=== PATIENT | male | born 1990 | race Caucasian/White ===

== ENCOUNTER 2018-05-19 11:11 | Emergency (ER) | payer BC ==
[2018-05-19 11:17] VITALS: BP 143/72
--- NOTE | 2018-05-19 11:38 | EDPHY ---
H & P Time Seen by Provider: 05/19/18 11:24 HPI/ROS: CHIEF COMPLAINT: Right ankle pain HISTORY OF PRESENT ILLNESS: 27-year-old male complaining of right ankle pain which occurred a few days ago he slipped on the ice. He is able to bear weight but notes continued pain to the right medial ankle. No paresthesia. No fall from height. No foot or calcaneus pain. No 5th metatarsal pain. PHYSICAL EXAM (Prior to examination, patient consented to physical exam, hands were washed and my usual and customary physical exam procedures followed) 1) GENERAL: Well-developed, well-nourished, alert and oriented. Appears to be in no acute distress. 2) HEAD: Normocephalic 3) HEENT: Pupils equal, round, reactive to light bilaterally. 4) LUNGS: Breathing comfortably. 5) MUSCULOSKELETAL: Soft tissue swelling to the medial malleolus with associated tenderness to the distal tibia and medial malleolus. No gross deformity or angulation. Intact skin. Mid and proximal tibia and fibula nontender .5th MT nontender negative Ahumada test, compartments soft 6) SKIN: intact 7) VASCULAR: DP,PT pulses and cap refill present and brisk DIFFERENTIAL DIAGNOSIS: in no particular order including but not limited to fracture, sprain, compartment syndrome Procedure: Splint A delroy boot splint was applied by ER hemodialysis lab technician. After application of the splint I returned and re-examined the patient. The splint was adequately immobilizing the joint and distal to the splint the patient's circulation and sensation were intact. Patient shows no signs of compartment syndrome. Was given orthopedic precautions. Smoking Status: Heavy smoker Constitutional: Initial Vital Signs Temperature (C) 36.6 C 05/19/18 11:14 Heart Rate 76 05/19/18 11:14 Respiratory Rate 18 05/19/18 11:14 Blood Pressure 143/72 H 05/19/18 11:14 O2 Sat (%) 95 05/19/18 11:14 O2 Delivery Mode Room Air Allergies/Adverse Reactions: aripiprazole [From Abiliy] Allergy (Verified 05/19/18 11:17) Home Medications: Medication Instructions Recorded Depakote 05/19/18 HALOPERIDOL 05/19/18 MDM/Departure - [facility] [place] Imaging Results: Imaging Impressions Ankle X-Ray 05/19/18 11:22 Impression: No acute osseous findings. Images reviewed myself ED Course/Re-evaluation: I re-evaluated the patient with serial exams. Discussed his imaging results. I recommended immobilization and follow up with Orthopedics. I discussed limitations of x-ray with the patient. He has been informed that non osseous injury, occult fracture not ruled out. As he feels comfortable following up. No evidence of compartment syndrome or neurovascular compromise at this time. Patient feels comfortable being discharged. All questions and concerns addressed by myself. Patient given my usual and customary discharge precautions and instructions regarding their clinical impression. Care of patient under supervision of secondary supervising physician Dr Reno - Lakshmi Disposition: Home, Routine, Self-Care Clinical Impression: Right ankle sprain Qualifiers: Encounter type: initial encounter Involved ligament of ankle: unspecified ligament Qualified Code(s): S93.401A - Sprain of unspecified ligament of right ankle, initial encounter Condition: Good Instructions: Ankle Sprain (ED) Additional Instructions: Return to the ER immediately if you experience discoloration, have worsening pain, numbness, tingling, or any other symptoms that concern you. If you received x-rays in the emergency department today, be advised, that ligamentous , tendon, muscular, and other non-bony injury cannot be fully ruled out. Try to keep your affected extremity elevated above the level of your chest, and keep cold packs on the affected area, for the next 48 hours. Referrals: Eric Leach MD [Medical Doctor] - 2-3 days, call for appt.
== END 2018-05-19 12:00 | disposition home or self-care (01) ==
DX: S93.401A Sprain of unspecified ligament of right ankle, initial encounter (principal); W00.9XXA Unspecified fall due to ice and snow, initial encounter; Y92.9 Unspecified place or not applicable; Y93.9 Activity, unspecified; Y99.9 Unspecified external cause status
CPT/HCPCS: L4386